=== PATIENT | female | born 1965 | race Caucasian/White ===

== ENCOUNTER → 2020-04-24 | Outpatient (CLI) | payer BC ==
[2020-04-24 08:55] VITALS: BP 152/89; PULSE 85; RESP 16; TEMP 98
--- NOTE | 2020-04-24 09:53 | P.HPOB ---
History of Present Illness H&P Date: 04/24/20 Chief Complaint: The patient is here for her routine gynecologic exam and ma mmogram. This is a 54-year-old 0-3 with an LMP of January 2020. The patient is here to establish with this office. It has been about 7 years since her last pelvic exam. The patient states her menstrual periods were fairly regular until January of this year. She has not had a menstrual periods since then. She denies any significant hot flashes. She thinks she may have had a yeast infection about 1- 1/2 months ago when she had a slight discharge with itching. Her symptoms resolved. She is without gynecologic complaints at this time. Review of Systems Her weight has been stable over the past year. She denies respiratory or cardiac problems. GI: Occasional constipation. 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 History of Any Multi-Drug Resistant Organisms: None Reported Past Surgical History: Section Additional Past Surgical History / Comment(s): section 2. D&C 2 for miscarriages. [place] teeth were removed. Past Psychological History: Anxiety Additional Psychological History / Comment(s): Anxiety when she was much younger. Smoking Status: Former smoker Additional Past Alcohol Use History / Comment(s): She quit smoking cigarettes in 2012. Past Drug Use History: Marijuana Additional History: She is single and has been with her boyfriend since 2012 and lives with him. She works for [employer] and is currently working at home. - Past Family History Father Family Medical History: Coronary Artery Disease (CAD) Additional Family Medical History / Comment(s): Cardiac valve problem. Mother Family Medical History: COPD Additional Family Medical History / Comment(s): She denies family history of cancer of the breast, uterus, ovaries, or colon. Medications and Allergies Home Medications Medication Instructions Recorded Confirmed Type No Known Home Medications 04/24/20 04/24/20 History Allergies Allergy/AdvReac Type Severity Reaction Status Date / Time No Known Allergies Allergy Unverified 04/24/20 08:56 Exam Vital Signs Temp Pulse Resp BP Pulse Ox 04/24/20 08:46 98.0 F 85 16 152/89 99 Intake and Output 04/23/20 04/24/20 04/24/20 22:59 06:59 14:59 Other: Weight 53.524 kg Height 5 feet 2 inches, weight 118 pounds, BMI 21.6. This is a well-developed well-nourished white female who is alert and oriented times 3 in no acute distress. HEENT: Within normal limits. NECK: Supple without mass or thyromegaly. CHEST AND LUNGS: Clear to auscultation. HEART: Regular rate and rhythm. BREASTS: Are without mass or discharge. AXILLARY EXAM: Negative for adenopathy. BACK: Negative for CVA tenderness. ABDOMEN: Soft, nontender, without palpable masses. PELVIC EXAM: Normal external genitalia with mild atrophy. Cervix and vagina appear normal with mild atrophy. There is no unusual discharge. There is no evidence of prolapse. The uterus is midposition, nongravid size and nontender. There are no palpable adnexal masses or tenderness. RECTAL EXAM: Rectovaginal exam is negative for mass or tenderness and is negative for occult blood. EXTREMITIES: Nontender. IMPRESSION: 1. 54-year-old perimenopausal female with recent amenorrhea and normal gynecologic exam. 2. Elevated blood pressure with no history of chronic hypertension. PLAN: 1. Pap smear was performed. 2. Self breast awareness was discussed with the patient. 3. Screening mammogram will be done today. 4. The patient will keep a menstrual calendar and call if she is having menstrual problems. 5. She understands there is a risk of becoming even though her chances of getting are declining. I have recommended that she do something to prevent . She states they have been using withdrawal. 6. We have discussed her elevated blood pressure. I have recommended that she check her blood pressure on a regular basis and she states she does have a blood pressure cuff that she can use. I have recommended that she establish with a primary care physician and follow-up with pr primary care physician for blood pressure elevations. I have also recommended that she continue having a colonoscopy done. She can also do this through her primary care physician when she establishes with one. 7. She was advised to return in one year for her annual well woman exam.
--- NOTE | 2020-04-25 11:22 | MM ---
Reason for exam: screening (asymptomatic). Last mammogram was performed 11 years and 3 months ago. History: Took hormonal contraceptives for 1 year. Physical Findings: A clinical breast exam by your physician is recommended on an annual basis and results should be correlated with mammographic findings. MG Screening Mammo w CAD Bilateral CC and MLO view(s) were taken. Prior study comparison: January 24, 2009, bilateral digital screening mammogram. July 25, 2006, bilateral screening mammogram w/CAD. The breast tissue is heterogeneously dense. This may lower the sensitivity of mammography. There is no discrete abnormality. No significant changes when compared with prior studies. ASSESSMENT: Benign, BI-RAD 2 RECOMMENDATION: Routine screening mammogram of both breasts in 1 year.
== END | disposition home or self-care (01) ==
LOC: WWCWWP 08:36
PROVIDERS: ATTEND Obstetrics & Gynecology
DX: Z12.31 Encounter for screening mammogram for malignant neoplasm of breast (principal)
CPT/HCPCS: 77067